=== PATIENT | male | born 1970 | race Hispanic/Latino ===

== ENCOUNTER 2020-12-03 06:29 | Day surgery (SDC) | payer OTHER ==
[2020-12-03] VITALS (8 sets, daily range): BP systolic 106–147; BP diastolic 68–87
[~2020-12-03] VITALS: Ht 168.9 cm; Wt 76.7 kg
[~2020-12-03 06:29] MED LIST: ATOR10TA69 PO; LISI10TA24 PO; METF-444 PO; SODIUM CHLORIDE 0.9% 1000ML 1,000 ML IV ONE
[2020-12-03] MEDS ORDERED: PROPOFOL 10 MG/ML 20ML VIAL IV ONE (08:20)
== END 2020-12-03 09:30 | disposition home or self-care (01) ==
LOC: ENDO 06:29 → DAH 06:29 → ENDO 09:30
PROVIDERS: ATTEND Internal Medicine Gastroenterology
DX: R14.0 Abdominal distension (gaseous) (principal); Z20.822 Contact with and (suspected) exposure to COVID-19; D12.3 Benign neoplasm of transverse colon; K31.89 Other diseases of stomach and duodenum; K59.01 Slow transit constipation; K29.50 Unspecified chronic gastritis without bleeding; K62.89 Other specified diseases of anus and rectum; B96.81 Helicobacter pylori [H. pylori] as the cause of diseases classified elsewhere; I10 Essential (primary) hypertension; E11.9 Type 2 diabetes mellitus without complications; E66.9 Obesity, unspecified; Z86.010 Personal history of colon polyps; Z68.41 Body mass index [BMI] 40.0-44.9, adult; Z79.899 Other long term (current) drug therapy; Z98.890 Other specified postprocedural states
CPT/HCPCS: 43239; 45380; 82948 ×2; 87635; A4215 ×2; A4221; A4222; A4223; A4606; A4620; A4657; A4663; C9803; J2704; J7030